=== PATIENT | male | born 1975 | race American Indian/Alaskan Native ===

== ENCOUNTER 2017-08-20 09:45 | Emergency (ER) | payer BC ==
[2017-08-20 10:10] VITALS: BP 140/82
--- NOTE | 2017-08-20 10:22 | Emergency Department Report ---
HPI - General Chief Complaint: Sore Throat Time Seen by Provider: 08/20/17 10:07 - HPI HPI: This is a 42 year-old male who presents to the emergency department from home with a complaint of a one to 2 day history of fever, sore throat and body aches and chills. The first day he took some Motrin which did help break the fever but it came back today and he took 1 g of Tylenol. He feels like there has been some brown sputum coming out of the throat but he denies any chest discomfort, cough or chest congestion. He does have some ear pain as well. His daughter is currently dealing with a ear infection. He denies any significant past medical history other than hypertension and gout. No recent travel. 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 The fever reached a MAXIMUM TEMPERATURE of 102.8 Fahrenheit ED Past Medical Hx - Past Medical History Previous Medical History?: Yes Hx Hypertension: Yes Additional medical history: Gout - Surgical History Past Surgical History?: Yes Additional Surgical History: tonsillectomy. L Rotator cuff - Social History Smoking Status: Never Smoker Substance Use Type: None - Medications Home Medications: Home Medications Medication Instructions Recorded Confirmed Last Taken Type Allopurinol 300 mg PO DAILY 08/20/17 08/20/17 Unknown History Losartan [Cozaar] 25 mg PO DAILY 08/20/17 08/20/17 Unknown History ED Review of Systems ROS: Stated complaint: SORE THROAT/FEVER Other details as noted in HPI Comment: All other systems reviewed and negative Constitutional: chills, fever Eyes: denies: eye pain, eye discharge, vision change ENT: ear pain, throat pain Respiratory: denies: cough, shortness of breath Cardiovascular: denies: chest pain, palpitations Gastrointestinal: denies: abdominal pain, nausea Genitourinary: denies: urgency, dysuria Musculoskeletal: myalgia (body aches). denies: joint swelling Skin: denies: rash, lesions Neurological: denies: headache, weakness, paresthesias Physical Exam - Physical Exam Vital Signs: Vital Signs 08/20/17 08/20/17 09:59 10:10 Temperature 99.2 F 99.2 F Pulse Rate 101 H 101 H Respiratory 18 16 Rate Blood Pressure 140/89 Blood Pressure 140/82 [Right] O2 Sat by Pulse 96 96 Oximetry Physical Exam: GENERAL: The patient is well-developed well-nourished. HENT: Normocephalic. Atraumatic. Patient has moist mucous membranes. There is some mild tonsillar erythema but no significant hypertrophy and no exudate seen. No drooling or trismus. Normal-appearing external ear canals and tympanic membranes bilaterally. EYES: Extraocular motions are intact. NECK: Supple. Trachea is midline. CHEST/LUNGS: Clear to auscultation. There is no respiratory distress noted. HEART/CARDIOVASCULAR: Regular. There is no tachycardia. There is no murmur. ABDOMEN: Abdomen is soft, nontender. Patient has normal bowel sounds. SKIN: There is no rash. There is no edema. There is no diaphoresis. NEURO: The patient is awake, alert, and oriented. The patient is cooperative. The patient has no focal neurologic deficits. The patient has normal speech. MUSCULOSKELETAL: There is no tenderness or deformity. There is no limitation range of motion. There is no evidence of acute injury. ED Course Vital Signs 08/20/17 08/20/17 09:59 10:10 Temperature 99.2 F 99.2 F Pulse Rate 101 H 101 H Respiratory 18 16 Rate Blood Pressure 140/89 Blood Pressure 140/82 [Right] O2 Sat by Pulse 96 96 Oximetry ED Medical Decision Making - Medical Decision Making This patient, who is a physician here, presents with fever, sore throat, body aches and some pain in the ears. Negative influenza and rapid strep test. Vital signs stable here. Most likely a viral syndrome. He will go home and rest, increase oral rehydration and will return with any worsening of symptoms or any acute distress. - Differential Diagnosis viral syndrome, URI, influenza, strep pharyngitis Critical Care Time: No Critical care attestation.: If time is entered above; I have spent that time in minutes in the direct care of this critically ill patient, excluding procedure time. ED Disposition Clinical Impression: Body aches, Viral syndrome Pharyngitis Qualifiers: Pharyngitis/tonsillitis etiology: unspecified etiology Qualified Code(s): J02.9 - Acute pharyngitis, unspecified Fever Qualifiers: Fever type: unspecified Qualified Code(s): R50.9 - Fever, unspecified Disposition: - TO HOME OR SELFCARE Is pt being admited?: No Condition: Good Instructions: Fever in Adults (ED), Pharyngitis (ED), Viral Syndrome (ED) Additional Instructions: Please follow-up with your primary care doctor next few days if possible. Return to the emergency Department with any worsening of your symptoms or any acute distress. Referrals: NIGEL CABRERA MD [Primary Care Provider] - 3-5 Days Time of Disposition: 10:49
== END 2017-08-20 10:53 | disposition home or self-care (01) ==
LOC: ED 09:45
DX: B34.9 Viral infection, unspecified (principal); J02.9 Acute pharyngitis, unspecified; I10 Essential (primary) hypertension; M10.9 Gout, unspecified
CPT/HCPCS: 87116; 87400; 87430; 99282